=== PATIENT | female | born 1980 | race Hispanic/Latino ===

== ENCOUNTER 2021-05-09 08:18 | Outpatient (CLI) | payer OTHER | END 2021-05-09 08:19 | disposition home or self-care (01) | LOC: CSHWCC 08:18 | PROVIDERS: ATTEND Nurse Practitioner Family | DX: T81.89XD Other complications of procedures, not elsewhere classified, subsequent encounter (principal); E11.622 Type 2 diabetes mellitus with other skin ulcer; E03.9 Hypothyroidism, unspecified; F32.9 Major depressive disorder, single episode, unspecified; T88.8XXS Other specified complications of surgical and medical care, not elsewhere classified, sequela | CPT/HCPCS: 99213; G0463 ==

== ENCOUNTER 2025-04-30 22:53 | Emergency (ER) | payer SELFPAY ==
[2025-05-01 00:39] LABS: #Basophils 0.04 10x3/uL (0.0-0.2); #Eosinophils 0.17 10x3/uL (0.0-0.5); #Monocytes 0.54 10x3/uL (0.0-1.1); #Neutrophils 4.82 10x3/uL (1.5-8.4); %Basophils 0.4 % (0.0-2.0); %Eosinophils 1.9 % (0.0-6.0); %Lymphocytes 37.4 % (18.0-47.0); %Monocytes 6.0 % (0.0-10.0); %Neutrophils 54.0 % (40.0-75.0); Anion Gap 12 mmol/L (10-20); BUN (Urea Nitrogen) 22 mg/dL (7.0-18.7); Calc. Creatinine Clearance 0 mL/min (70-130); Calcium 8.6 mg/dL (7.8-10.44); Carbon Dioxide 20 mmol/L (22-29); Chloride 104 mmol/L (98-107); Glucose 271 mg/dL (70-105); Hematocrit 34.1 % (34.9-44.5); Hemoglobin 11.1 g/dL (12.0-15.5); Mean Corpuscular Hemoglobin 27.0 pg (27.0-33.0); Mean Corpuscular Volume 83.0 fL (81.6-98.3); Platelet Count 330 10x3/uL (150-450); Potassium 4.0 mmol/L (3.5-5.1); Red Blood Cell (RBC) Count 4.11 10x6/uL (3.90-5.03); Sodium 132 mmol/L (136-145); White Blood Cell (WBC) Count 8.95 10x3/uL (3.5-10.5)
== END 2025-05-01 00:16 | disposition home or self-care (01) ==
LOC: CSHERS 22:53
DX: E11.65 Type 2 diabetes mellitus with hyperglycemia (principal); E03.9 Hypothyroidism, unspecified; Z79.890 Hormone replacement therapy; Z79.84 Long term (current) use of oral hypoglycemic drugs
CPT/HCPCS: 36415; 36416; 80048; 85025; 99283; J1815

== ENCOUNTER 2025-06-04 21:52 | Emergency (ER) | payer OTHER, SELFPAY ==
[2025-06-04 22:20] LABS: Glucose, Urine (Dipstick) Normal (Negative); Leukocyte Negative (Negative); Protein, Urine (Dipstick) 15 mg/dl (Neg-Trace); Specific Gravity, Urine 1.015 (1.005-1.030)
[2025-06-04 22:23] LABS: Pregnancy Test - Urine (BHCG) Negative (Negative); Pregu Control Background? CLEAR/WHITE (CLR/WHITE); Pregu Control Bar Appear? YES (CONTROL BAR)
[2025-06-04 22:27] LABS: Bacteria/HPF None Seen HPF (None Seen); CAUTI Indications for Culture Dysuria,urgency,freq; RBC/HPF None Seen HPF (0-3); WBC/HPF 0-3 HPF (0-3)
[2025-06-04 22:29] LABS: Urine Culture Reflex No No
[2025-06-04] MEDS ORDERED: Ondansetron PF 4 MG/2 ML Vial ONE (23:31)
[2025-06-05 00:06] LABS: #Basophils 0.04 10x3/uL (0.0-0.2); #Eosinophils 0.11 10x3/uL (0.0-0.5); #Monocytes 0.43 10x3/uL (0.0-1.1); #Neutrophils 4.09 10x3/uL (1.5-8.4); %Basophils 0.5 % (0.0-2.0); %Eosinophils 1.5 % (0.0-6.0); %Lymphocytes 36.9 % (18.0-47.0); %Monocytes 5.8 % (0.0-10.0); %Neutrophils 55.0 % (40.0-75.0); Hematocrit 39.1 % (34.9-44.5); Hemoglobin 12.6 g/dL (12.0-15.5); Mean Corpuscular Hemoglobin 27.8 pg (27.0-33.0); Mean Corpuscular Volume 86.1 fL (81.6-98.3); Platelet Count 437 10x3/uL (150-450); Red Blood Cell (RBC) Count 4.54 10x6/uL (3.90-5.03); White Blood Cell (WBC) Count 7.43 10x3/uL (3.5-10.5)
[2025-06-05 00:19] LABS: ALT (SGPT) 11 U/L (Less than 34); AST (SGOT) 11 U/L (11-34); Albumin 4.3 g/dL (3.1-4.5); Alkaline Phosphatase 63 U/L (40-110); Anion Gap 14 mmol/L (10-20); BUN (Urea Nitrogen) 17 mg/dL (7.0-18.7); Bilirubin, Total 0.1 mg/dL (0.3-1.2); Calc. Creatinine Clearance 0 mL/min (70-130); Calcium 9.6 mg/dL (7.8-10.44); Carbon Dioxide 22 mmol/L (22-29); Chloride 103 mmol/L (98-107); Globulin 4.0 g/dL (2.4-3.5); Glucose 261 mg/dL (70-105); Potassium 3.9 mmol/L (3.5-5.1); Sodium 135 mmol/L (136-145)
== END 2025-06-05 01:15 | disposition home or self-care (01) ==
LOC: CSHERS 21:52
DX: R10.9 Unspecified abdominal pain (principal); N18.9 Chronic kidney disease, unspecified; E11.22 Type 2 diabetes mellitus with diabetic chronic kidney disease; F17.290 Nicotine dependence, other tobacco product, uncomplicated
CPT/HCPCS: 74176; 80053; 81001; 81025; 85025; 96374; 96375; J2270; J2405

== ENCOUNTER 2025-08-08 20:51 | Emergency (ER) | payer OTHER | END 2025-08-08 21:22 | LOC: CSHERS 20:51 | DX: B02.9 Zoster without complications (principal); E03.9 Hypothyroidism, unspecified; E11.9 Type 2 diabetes mellitus without complications; F17.200 Nicotine dependence, unspecified, uncomplicated; Z79.4 Long term (current) use of insulin; Z79.84 Long term (current) use of oral hypoglycemic drugs; Z79.890 Hormone replacement therapy | CPT/HCPCS: 99282 ==

== ENCOUNTER 2025-08-29 17:49 | Emergency (ER) | payer OTHER, SELFPAY ==
[2025-08-29] MEDS ORDERED: Dexamethasone 10 MG/ML VIAL ONE (19:24)
[2025-08-29] MEDS ORDERED: diphenhydrAMINE 25 MG CAP ONE (19:25)
== END 2025-08-29 19:48 | disposition home or self-care (01) ==
LOC: CSHERS 17:49
DX: L29.9 Pruritus, unspecified (principal); T37.5X5A Adverse effect of antiviral drugs, initial encounter; F41.1 Generalized anxiety disorder; E11.9 Type 2 diabetes mellitus without complications; F17.200 Nicotine dependence, unspecified, uncomplicated
CPT/HCPCS: 96372; 99283; J1100

== ENCOUNTER 2025-09-05 13:12 | Emergency (ER) | payer SELFPAY | END 2025-09-05 14:03 | disposition left against medical advice (07) | LOC: CSHERS 13:12 | DX: Z53.21 Procedure and treatment not carried out due to patient leaving prior to being seen by health care provider (principal) ==